=== PATIENT | male | born 1975 | race Caucasian/White ===

== ENCOUNTER 2017-01-07 18:11 | Emergency (ER) | payer SELFPAY ==
[~2017-01-07] VITALS: Ht 180.3 cm; Wt 62.7 kg
[2017-01-07] MEDS ORDERED: CLEOCIN300 MG PO (19:54)
[2017-01-07] MEDS ORDERED: ULTRAM50 MG PO (19:54)
[2017-01-07 20:12] VITALS: BP 135/68
== END 2017-01-07 20:13 | disposition home or self-care (01) ==
LOC: EME 18:11
DX: K08.89 Other specified disorders of teeth and supporting structures (principal); Z88.0 Allergy status to penicillin
CPT/HCPCS: 99281; 99282

== ENCOUNTER 2017-06-12 10:41 | Emergency (ER) | payer SELFPAY ==
[~2017-06-12] VITALS: Ht 180.3 cm; Wt 64.7 kg
[~2017-06-12 10:41] MED LIST: CLEOCIN300 MG PO; ULTRAM50 MG PO
[2017-06-12 10:48] VITALS: BP 148/105
[2017-06-12] MEDS ORDERED: MOTRIN600 MG PO (12:23)
[2017-06-12] MEDS ORDERED: CLEOCIN300 MG PO (12:23)
== END 2017-06-12 12:46 | disposition home or self-care (01) ==
LOC: EME 10:41
DX: K04.7 Periapical abscess without sinus (principal); F17.200 Nicotine dependence, unspecified, uncomplicated; Z88.0 Allergy status to penicillin
CPT/HCPCS: 99281; 99283